=== PATIENT | male | born 1980 | race Caucasian/White ===

== ENCOUNTER 2022-10-12 14:03 | Observation (INO) | payer OTHER ==
[2022-10-12] MEDS ORDERED: NITROGLYCERIN OINT 1 INCH/GM PACKET TOPICAL STA (14:57)
[2022-10-12] MEDS ORDERED: ASPIRIN 81 MG PO STA (14:57)
--- NOTE | 2022-10-12 15:16 | ED ---
General Adult HPI - General Chief complaint: Chest Pain Stated complaint: Chest Pain Time Seen by Provider: 10/12/22 14:10 Source: patient, family, RN notes reviewed, old records reviewed Mode of arrival: EMS Limitations: no limitations - History of Present Illness Initial comments: This a 42-year-old male who presents to the emergency department complaining of left-sided chest pain that radiates down his left arm. Patient states it also makes him mildly short of breath and lightheaded. Patient states it started hour prior to arrival. Patient states he has a history of smoking and a family history is strong for cardiac disease. Patient denies any history of diabetes hypertension high cholesterol. Patient denies any recent fever chills or cough per patient denies any near syncopal episode however he does feel very dizzy. Patient denies any abdominal pain patient's nausea vomiting diarrhea. - Related Data Home Medications Medication Instructions Recorded Confirmed ALPRAZolam [Xanax] 0.5 mg PO DAILY PRN 10/12/22 10/12/22 Divalproex ER [Depakote ER] 1,000 mg PO BID 10/12/22 10/12/22 Allergies Allergy/AdvReac Type Severity Reaction Status Date / Time guaifenesin [From Mucinex] Allergy Rash/Hives Verified 10/12/22 14:36 Review of Systems ROS Statement: Those systems with pertinent positive or pertinent negative responses have been documented in the HPI. ROS Other: All systems not noted in ROS Statement are negative. Past Medical History Past Medical History: Seizure Disorder Additional Past Medical History / Comment(s): IBS History of Any Multi-Drug Resistant Organisms: None Reported Past Surgical History: Appendectomy, Cholecystectomy Past Psychological History: Anxiety, Bipolar Smoking Status: Current every day smoker Past Alcohol Use History: Occasional Past Drug Use History: None Reported General Exam - General Exam Comments Initial Comments: GENERAL: Patient is well-developed and well-nourished. Patient is nontoxic and well- hydrated and is in mild distress. ENT: Neck is soft and supple. No significant lymphadenopathy is noted. Oropharynx is clear. Moist mucous membranes. Neck has full range of motion without eliciting any pain. EYES: The sclera were anicteric and conjunctiva were pink and moist. Extraocular movements were intact and pupils were equal round and reactive to light. Eyelids were unremarkable. PULMONARY: Unlabored respirations. Good breath sounds bilaterally. No audible rales rhonchi or wheezing was noted. CARDIOVASCULAR: There is a regular rate and rhythm without any murmurs gallops or rubs. ABDOMEN: Soft and nontender with normal bowel sounds. SKIN: Skin is clear with no lesions or rashes and otherwise unremarkable. NEUROLOGIC: Patient is alert and oriented x3. Cranial nerves II through XII are grossly intact. Motor and sensory are also intact. Normal speech, volume and content. Symmetrical smile. MUSCULOSKELETAL: Normal extremities with adequate strength and full range of motion. LYMPHATICS: No significant lymphadenopathy is noted PSYCHIATRIC: Normal psychiatric evaluation. Limitations: no limitations Course Vital Signs 10/12/22 10/12/22 10/12/22 14:05 14:11 17:00 Temperature 98.4 F Pulse Rate 79 79 65 Respiratory 16 18 18 Rate Blood Pressure 124/83 118/80 O2 Sat by Pulse 96 96 97 Oximetry 10/12/22 10/12/22 17:13 19:33 Temperature Pulse Rate 64 79 Respiratory 16 20 Rate Blood Pressure 111/77 107/77 O2 Sat by Pulse 97 98 Oximetry Medical Decision Making - Medical Decision Making EKG was interpreted by myself shows a sinus rhythm with an occasional PVC at 78 bpm TX interval 195 QRSs 190 QT interval 377 QTC is 410. Patient's EKG sh owselevation or depression. Was pt. sent in by a medical professional or institution ([facility], [employer]EL[employer], urgent care, hospital, or fci...) When possible be specific @ -[No] Did you speak to anyone other than the patient for history (EMS, parent, family, police, friend...)? What history was obtained from this source @ -[No] Did you review nursing and triage notes (agree or disagree)? Why? @ -[I reviewed and agree with nursing and triage notes] Were old charts reviewed (outside hosp., previous admission, EMS record, old EKG, old radiological studies, urgent care reports/EKG's, fci records)? Report findings @ -[No old charts were reviewed] Differential Diagnosis (chest pain, altered mental status, abdominal pain women, abdominal pain men, vaginal bleeding, weakness, fever, dyspnea, syncope, headache, dizziness, GI bleed, back pain, seizure, CVA, palpatations, mental health, musculoskeletal)? @ -Differential chest pain EKG interpreted by me (3pts min.). @ -[As above] X-rays interpreted by me (1pt min.). @ -Shows no acute abnormality CT interpreted by me (1pt min.). @ -[None done] U/S interpreted by me (1pt. min.). @ -[None done] What testing was considered but not performed or refused? (CT, X-rays, U/S, lab s)? Why? @ -[None] What meds were considered but not given or refused? Why? @ -[None] Did you discuss the management of the patient with other professionals (professionals i.e. , PA, JAVA DEVELOPER, lab, RT, psych nurse, hospital social worker, core carrier, teacher, sba business development officer, telephonic nurse case manager)? Give summary @ -I spoke with Dr. Montoya he agreed to admit the patient admitted the patient I wrote admitting orders Was smoking cessation discussed for >3mins.? @ -[No] Was critical care preformed (if so, how long)? @ -[No] Were there social determinants of health that impacted care today? How? (Homelessness, low income, unemployed, alcoholism, drug addiction, transportation, low edu. Level, literacy, decrease access to med. care, long term, rehab)? @ -[No] Was there de-escalation of care discussed even if they declined (Discuss DNR or withdrawal of care, Hospice)? DNR status @ -[No] What co-morbidities impacted this encounter? (DM, HTN, Smoking, COPD, CAD, Cancer, CVA, ARF, Chemo, Hep., AIDS, mental health diagnosis, sleep apnea, morbid obesity)? @ -[None] Was patient admitted / discharged? Hospital course, mention meds given and route, prescriptions, significant lab abnormalities, going to OR and other pertinent info. @ -Patient had lab work done all of which was normal patient continued to have some chest pain and left arm and I spoke with Dr. Montoya agreed to admit the patient admitted the patient wrote admitting orders I consult cardiology Undiagnosed new problem with uncertain prognosis? @ -[No] Drug Therapy requiring intensive monitoring for toxicity (Heparin, Nitro, Insulin, Cardizem)? @ -[No] Were any procedures done? @ -[No] Diagnosis/symptom? @ -Chest pain Acute, or Chronic, or Acute on Chronic? @ -Acute Uncomplicated (without systemic symptoms) or Complicated (systemic symptoms)? @ -Complicated Side effects of treatment? @ -[No] Exacerbation, Progression, or Severe Exacerbation? @ -[No] Poses a threat to life or bodily function? How? (Chest pain, USA, MO, pneumonia, PE, COPD, DKA, ARF, appy, cholecystitis, CVA, Diverticulitis, Homicidal, Suicidal, threat to staff... and all critical care pts) @ -Assess this could lead to an MO which could lead to end organ dysfunction - Lab Data Result diagrams: 10/12/22 15:03 10/12/22 15:03 Lab Results 10/12/22 10/12/22 10/12/22 Range/Units 15: 15: 15:03 WBC 7.0 (3.8-10.6) k/uL RBC 4.90 (4.30-5.90) m/uL Hgb 14.5 (13.0-17.5) gm/dL Hct 43.1 (39.0-53.0) % MCV 88.1 (80.0-100.0) fL MCH 29.6 (25.0-35.0) pg MCHC 33.6 (31.0-37.0) g/dL RDW 12.9 (11.5-15.5) % Plt Count 211 (150-450) k/uL MPV 8.5 Neutrophils % 39 % Lymphocytes % 50 % Monocytes % 6 % Eosinophils % 3 % Basophils % 1 % Neutrophils # 2.7 (1.3-7.7) k/uL Lymphocytes # 3.5 (1.0-4.8) k/uL Monocytes # 0.5 (0-1.0) k/uL Eosinophils # 0.2 (0-0.7) k/uL Basophils # 0.0 (0-0.2) k/uL PT 10.1 (9.0-12.0) sec INR 0.9 (<1.2) APTT 23.8 (22.0-30.0) sec Sodium 140 (137-145) mmol/L Potassium 4.2 (3.5-5.1) mmol/L Chloride 107 (98-107) mmol/L Carbon Dioxide 23 (22-30) mmol/L Anion Gap 10 mmol/L BUN 15 (9-20) mg/dL Creatinine 0.86 (0.66-1.25) mg/dL Est GFR (CKD-EPI)AfAm >90 (>60 ml/min/1.73 sqM) Est GFR (CKD-EPI)NonAf >90 (>60 ml/min/1.73 sqM) Glucose 117 H (74-99) mg/dL Calcium 9.0 (8.4-10.2) mg/dL Magnesium 1.9 (1.6-2.3) mg/dL Total Bilirubin 0.2 (0.2-1.3) mg/dL AST 23 (17-59) U/L ALT 29 (4-49) U/L Alkaline Phosphatase 64 (38-126) U/L Troponin I (0.000-0.034) ng/mL Total Protein 6.6 (6.3-8.2) g/dL Albumin 3.9 (3.5-5.0) g/dL 10/12/22 Range/Units 15:03 WBC (3.8-10.6) k/uL RBC (4.30-5.90) m/uL Hgb (13.0-17.5) gm/dL Hct (39.0-53.0) % MCV (80.0-100.0) fL MCH (25.0-35.0) pg MCHC (31.0-37.0) g/dL RDW (11.5-15.5) % Plt Count (150-450) k/uL MPV Neutrophils % % Lymphocytes % % Monocytes % % Eosinophils % % Basophils % % Neutrophils # (1.3-7.7) k/uL Lymphocytes # (1.0-4.8) k/uL Monocytes # (0-1.0) k/uL Eosinophils # (0-0.7) k/uL Basophils # (0-0.2) k/uL PT (9.0-12.0) sec INR (<1.2) APTT (22.0-30.0) sec Sodium (137-145) mmol/L Potassium (3.5-5.1) mmol/L Chloride (98-107) mmol/L Carbon Dioxide (22-30) mmol/L Anion Gap mmol/L BUN (9-20) mg/dL Creatinine (0.66-1.25) mg/dL Est GFR (CKD-EPI)AfAm (>60 ml/min/1.73 sqM) Est GFR (CKD-EPI)NonAf (>60 ml/min/1.73 sqM) Glucose (74-99) mg/dL Calcium (8.4-10.2) mg/dL Magnesium (1.6-2.3) mg/dL Total Bilirubin (0.2-1.3) mg/dL AST (17-59) U/L ALT (4-49) U/L Alkaline Phosphatase (38-126) U/L Troponin I <0.012 (0.000-0.034) ng/mL Total Protein (6.3-8.2) g/dL Albumin (3.5-5.0) g/dL Disposition Clinical Impression: Chest pain Disposition: ADMITTED IP TO THIS [facility] Referrals: Tanja Juan DO [Primary Care Provider] - 1-2 days Time of Disposition: 19:57
[2022-10-12 15:17] LABS: Basophils % (A) 1 %; Eosinophils # (A) 0.2 k/uL (0-0.7); Eosinophils % (A) 3 %; HCT 43.1 % (39.0-53.0); HGB 14.5 gm/dL (13.0-17.5); Lymphocytes # (A) 3.5 k/uL (1.0-4.8); Lymphocytes % (A) 50 %; MCH 29.6 pg (25.0-35.0); MCHC 33.6 g/dL (31.0-37.0); MCV 88.1 fL (80.0-100.0); Mean Platelet Volume 8.5; Monocytes # (A) 0.5 k/uL (0-1.0); Monocytes % (A) 6 %; Neutrophils # (A) 2.7 k/uL (1.3-7.7); Neutrophils % (A) 39 %; Platelet Count 211 k/uL (150-450); RDW 12.9 % (11.5-15.5)
[2022-10-12 15:28] LABS: INR 0.9 (<1.2); Partial Thromboplastin Time 23.8 sec (22.0-30.0); Prothrombin Time 10.1 sec (9.0-12.0)
[2022-10-12 15:46] LABS: ALT 29 U/L (4-49); AST 23 U/L (17-59); African American GFR (CKD) >90 (>60 ml/min/1.73 sqM); Albumin 3.9 g/dL (3.5-5.0); Alkaline Phosphatase 64 U/L (38-126); Anion Gap 10 mmol/L; Blood Urea Nitrogen 15 mg/dL (9-20); Carbon Dioxide 23 mmol/L (22-30); Chloride 107 mmol/L (98-107); Glucose 117 mg/dL (74-99); Magnesium 1.9 mg/dL (1.6-2.3); Non-African American GFR(CKD) >90 (>60 ml/min/1.73 sqM); Potassium 4.2 mmol/L (3.5-5.1); Sodium 140 mmol/L (137-145); Total Bilirubin 0.2 mg/dL (0.2-1.3); Total Protein 6.6 g/dL (6.3-8.2)
--- NOTE | 2022-10-12 16:39 | XR ---
EXAMINATION TYPE: XR chest 2V DATE OF EXAM: 10/12/2022 4:34 PM COMPARISON: Chest radiographs from 10/12/2022 TECHNIQUE: XR chest 2V Frontal and lateral views of the chest. CLINICAL INDICATION:Male, 42 years old with history of Chest Pain; FINDINGS: Lungs/Pleura: There is no evidence of pleural effusion, focal consolidation, or pneumothorax. Pulmonary vascularity: Unremarkable. Heart/mediastinum: Cardiomediastinal silhouette is unremarkable. Musculoskeletal: No acute osseous pathology. IMPRESSION: No acute cardiopulmonary disease/process.
[2022-10-12] MEDS ORDERED: NITROGLYCERIN SL TABS 0.4 MG TAB SUBLINGUAL PRN (19:57)
[2022-10-12] MEDS ORDERED: ACETAMINOPHEN TAB 325 MG TAB PO PRN (20:48)
[2022-10-12] MEDS ORDERED: TEMAZEPAM 15 MG CAP PO PRN (20:48)
[2022-10-12] MEDS ORDERED: ONDANSETRON 4 MG/2 ML VIAL IVP PRN (20:48)
[2022-10-12] MEDS ORDERED: NALOXONE 0.4 MG/ML 1 ML VIAL IV PRN (20:48)
[2022-10-12] MEDS ORDERED: LORazepam 0.5 MG TAB PO PRN (20:48)
--- NOTE | 2022-10-12 20:50 | P.HPIM ---
History of Present Illness H&P Date: 10/12/22 Chief Complaint: Chest pressure This is a pleasant 42-year-old patient, follows Dr. Tanja trujillo. Chronic stable medical conditions include, epilepsy for which patient is on Depakote, bipolar disorder, irritable bowel syndrome. Patient works at [employer]. Was putting small packets on the shelf when he developed pain in the middle of the chest. Pain was then felt in the left arm is a numbness. And the shoulder. Initially felt a little bit dizzy. And mildly short of breath. No perspiration. Had a baseline patient does feel tired. Decided to come to the hospital. No prior cardiac history. Patient does smoke less than a pack a day. Review of systems: GEN.: Tired EYES: None HEENT: None NECK: None RESPIRATORY: None CARDIOVASCULAR: None GASTROINTESTINAL: None GENITOURINARY: None MUSCULOSKELETAL: None LYMPHATICS: None HEMATOLOGICAL: None PSYCHIATRY: Anxious NEUROLOGICAL: None Past medical history to include: Epilepsy, IBS, bipolar disorder Social history: Works at [employer]. Lives alone. Smokes less than a pack a day. Denies use of recreational drugs. Physical examination: VITAL SIGNS: 98.4, 79, 20, 107/77, 98% room air GENERAL: BMI 40.1, declining very slightly anxious. EYES: Pupils equal. Conjunctiva normal. HEENT: External appearance of nose and ears normal, oral cavity grossly normal. NECK: JVD not raised; masses not palpable. HEART: First and second heart sounds are normal; no edema. LUNGS: Respiratory rate normal; clear to auscultation. ABDOMEN: Soft, nontender, liver spleen not palpable, no masses palpable. PSYCH: Alert and oriented x3; mood and affect normal. MUSCULOSKELETAL:No Clubbing/cyanosis;muscles-grossly intact. Some reproducible tenderness of the left lower costochondral junction NEUROLOGICAL: Cranial nerves grossly intact; no facial asymmetry, power and sensation grossly intact. LYMPHATICS: No lymph nodes palpable in the axilla and neck INVESTIGATIONS, reviewed in the clinical context: White count 7 hemoglobin 14.5 platelets 211 sodium 140 potassium 4.2 creatinine 0.86 Troponin I is less than 0.012 EKG tracing personally reviewed by me-normal sinus rhythm Chest x-ray film personally reviewed by me-unremarkable Assessment and plan: -Anterior chest wall pain. Some cardiac features. Risk factors include obesity, smoking. Serial cardiac enzymes. Telemetry. Consult cardiology. -Chronic nicotine dependence, cigarette smoker Nicotine patch -Bipolar disorder Xanax when necessary -Epilepsy disorder Depakote ER -Morbid obesity BMI 40.1 Weight loss measures Care was discussed with the patient. Cardiology consulted. Nitro paste. Past Medical History Past Medical History: Seizure Disorder Additional Past Medical History / Comment(s): IBS History of Any Multi-Drug Resistant Organisms: None Reported Past Surgical History: Appendectomy, Cholecystectomy Past Psychological History: Anxiety, Bipolar Smoking Status: Current every day smoker Past Alcohol Use History: Occasional Past Drug Use History: None Reported Medications and Allergies Home Medications Medication Instructions Recorded Confirmed Type ALPRAZolam [Xanax] 0.5 mg PO DAILY PRN 10/12/22 10/12/22 History Divalproex ER [Depakote ER] 1,000 mg PO BID 10/12/22 10/12/22 History Allergies Allergy/AdvReac Type Severity Reaction Status Date / Time guaifenesin [From Mucinex] Allergy Rash/Hives Verified 10/12/22 14:36 Physical Exam Vitals: Vital Signs Temp Pulse Resp BP Pulse Ox 10/12/22 19:33 79 20 107/77 98 10/12/22 17:13 64 16 111/77 97 10/12/22 17:00 65 18 118/80 97 10/12/22 14:11 79 18 96 10/12/22 14:05 98.4 F 79 16 124/83 96 Intake and Output 10/12/22 10/12/22 10/12/22 06:59 14:59 22:59 Other: Weight 141.521 kg Results CBC & Chem 7: 10/12/22 15:03 10/12/22 15:03 Labs: Abnormal Lab Results - Last 24 Hours (Table) 10/12/22 Range/Units 15:03 Glucose 117 H (74-99) mg/dL
[2022-10-12] MEDS: ENOXAPARIN 40 MG/0.4 ML SYRINGE SQ SCH (21:17)
[2022-10-12] MEDS: NICOTINE 21MG/24HR PATCH TRANSDERM SCH (21:18)
[2022-10-13] MEDS: NITROGLYCERIN OINT 1 INCH/GM PACKET TOPICAL SCH ×3 (00:19→11:37)
[2022-10-13 08:14] VITALS: RESP 17
[2022-10-13] MEDS ORDERED: DOBUTamine DRIP for NUC MED 500 MG in DEXTROSE/WATER 1 250ML.BAG IV PRN (08:29)
[2022-10-13] MEDS: ENOXAPARIN 40 MG/0.4 ML SYRINGE SQ SCH (08:34)
[2022-10-13] MEDS: NICOTINE 21MG/24HR PATCH TRANSDERM SCH (08:34)
[2022-10-13] MEDS ORDERED: ASPIRIN 325 MG TAB PO SCH (09:00)
[2022-10-13 10:21] LABS: Chol/HDL Ratio 7.02 Ratio; LDL Cholesterol,Calculated 110.4 mg/dL (0.0-131.0)
--- NOTE | 2022-10-13 10:40 | P.CRDCN ---
History of Present Illness Consult date: 10/13/22 Consult reason: chest pain History of present illness: History of present illness: This is a 42 year old male with no previous cardiac history and no previous cardiac workup . He has a past medical history of bronchitis, IBS, epilepsy, active tobacco use and dependence of less than one pack per day. 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 He also had some difficulty in breathing. He states he is normally moderately active. He does have chronic back pain would not be able to ambulate on a treadmill. He states he has never had this chest pain before. It lasted about a half hour and went away on its own. He has not experienced it with ambulation. Regarding alcohol, patient states he has a drink 1-2 times per week. Patient is seen today in the ER waiting for bed on the observation unit. EKG sinus rhythm Chest x-ray: No acute process CBC CMP unremarkable except except for glucose of 117. Troponin negative 3. Triglycerides 387, cholesterol 219, LDL 110, HDL 31. Home cardiac medications: None Review Of Systems: At the time of my evaluation: Constitutional: No fever, no chills. No weakness, fatigue or lethargy. EENT: No headache. No dizziness. Lungs: No shortness of breath, cough, no sputum production. No wheezing. Cardiovascular: No chest pain, no lower extremity edema. No palpitations. No paroxysmal nocturnal dyspnea. No orthopnea. No lightheadedness or dizziness. No syncopal episodes. Abdominal: No abdominal pain. No nausea, vomiting. No diarrhea. No constipation. No bloody or tarry stools. Genitourinary: No dysuria.. No urinary retention. Musculoskeletal: No myalgias. No muscle weakness, no frequent falls. No back pain. No neck pain. Integumentary: No wounds. No rash. No unusual bruising. Neurologic: No aphasia. No facial droop. No change in mentation. No head injury. No headache. Physical examination: Gen: This is a morbidly obese 42-year-old male. He is resting on the ER stretcher and appears to be comfortable and in no acute distress.[ ] VS: reviewed HEENT: Head is atraumatic, normocephalic. Pupils equal, round. Sclerae is anicteric. NECK: Supple. No JVD. . LUNGS: Clear to auscultation. No wheezes or rhonchi. No intercostal retractions. HEART: Regular rate and rhythm. No murmur. ABDOMEN: Soft No tenderness. EXTREMITIES: No pedal edema. No calf tenderness. NEUROLOGICAL: Patient is awake, alert and oriented x3. Assessment: Atypical chest pain, acute coronary syndrome ruled out Tobacco use and dependence Bronchitis IBS Epilepsy Plan: Obtain dobutamine stress test Obtain 2-D echocardiogram and Doppler study to assess cardiac structure and function If cardiac testing is unremarkable, patient is cleared for discharge home Thank you kindly for this consultation. Nurse practitioner note has been reviewed, I agree with documented findings and plan of care. Patient was seen and examined. Past Medical History Past Medical History: Seizure Disorder Additional Past Medical History / Comment(s): IBS History of Any Multi-Drug Resistant Organisms: None Reported Past Surgical History: Appendectomy, Cholecystectomy Past Psychological History: Anxiety, Bipolar Smoking Status: Current every day smoker Past Alcohol Use History: Occasional Past Drug Use History: None Reported Medications and Allergies Home Medications Medication Instructions Recorded Confirmed Type ALPRAZolam [Xanax] 0.5 mg PO DAILY PRN 10/12/22 10/12/22 History Divalproex ER [Depakote ER] 1,000 mg PO BID 10/12/22 10/12/22 History Allergies Allergy/AdvReac Type Severity Reaction Status Date / Time guaifenesin [From Mucinex] Allergy Rash/Hives Verified 10/12/22 14:36 Physical Exam Vitals: Vital Signs Temp Pulse Resp BP Pulse Ox 10/13/22 08:14 83 17 108/74 96 10/13/22 06:02 71 18 88/51 97 10/13/22 00:25 80 18 106/65 10/12/22 22:36 101 H 20 120/80 98 10/12/22 19:33 79 20 107/77 98 10/12/22 17:13 64 16 111/77 97 10/12/22 17:00 65 18 118/80 97 10/12/22 14:11 79 18 96 10/12/22 14:05 98.4 F 79 16 124/83 96 Results 10/12/22 15:03 10/12/22 15:03 Cardiac Enzymes 10/12/22 10/12/22 10/12/22 Range/Units 15:03 15:03 20:12 AST 23 (17-59) U/L Troponin I <0.012 <0.012 (0.000-0.034) ng/mL 10/12/22 Range/Units 23:02 AST (17-59) U/L Troponin I <0.012 (0.000-0.034) ng/mL Coagulation 10/12/22 Range/Units 15:03 PT 10.1 (9.0-12.0) sec APTT 23.8 (22.0-30.0) sec CBC 10/12/22 Range/Units 15:03 WBC 7.0 (3.8-10.6) k/uL RBC 4.90 (4.30-5.90) m/uL Hgb 14.5 (13.0-17.5) gm/dL Hct 43.1 (39.0-53.0) % Plt Count 211 (150-450) k/uL Comprehensive Metabolic Panel 10/12/22 Range/Units 15:03 Sodium 140 (137-145) mmol/L Potassium 4.2 (3.5-5.1) mmol/L Chloride 107 (98-107) mmol/L Carbon Dioxide 23 (22-30) mmol/L BUN 15 (9-20) mg/dL Creatinine 0.86 (0.66-1.25) mg/dL Glucose 117 H (74-99) mg/dL Calcium 9.0 (8.4-10.2) mg/dL AST 23 (17-59) U/L ALT 29 (4-49) U/L Alkaline Phosphatase 64 (38-126) U/L Total Protein 6.6 (6.3-8.2) g/dL Albumin 3.9 (3.5-5.0) g/dL Current Medications Generic Name Dose Route Start Last Admin Trade Name Freq PRN Reason Stop Dose Admin Acetaminophen 650 mg 10/12/22 20:48 Acetaminophen Tab 325 Mg Tab PO Q6HR PRN Mild Pain or Fever > 100.5 Aspirin 325 mg 10/13/22 09:00 Aspirin 325 Mg Tab PO DAILY [facility] Enoxaparin Sodium 40 mg 10/12/22 21:00 10/12/22 21:17 Enoxaparin 40 Mg/0.4 Ml Syringe SQ 40 mg DAILY DANISH Administration Lorazepam 0.5 mg 10/12/22 20:48 Lorazepam 0.5 Mg Tab PO Q6HR PRN Anxiety Naloxone HCl 0.2 mg 10/12/22 20:48 Naloxone 0.4 Mg/Ml 1 Ml Vial IV Q2M PRN Opioid Reversal Nicotine 1 patch 10/12/22 21:00 10/12/22 21:18 Nicotine 21mg/24hr Patch TRANSDERM 1 patch DAILY DANISH Administration Nitroglycerin 0.4 mg 10/12/22 19:57 Nitroglycerin Sl Tabs 0.4 Mg Tab SUBLINGUAL Q5M PRN Chest Pain Nitroglycerin 1 inch 10/13/22 00:00 10/13/22 06:05 Nitroglycerin Oint 1 Inch/Gm Packet TOPICAL Not Given Q6HR DANISH Ondansetron HCl 4 mg 10/12/22 20:48 Ondansetron 4 Mg/2 Ml Vial IVP Q8HR PRN Nausea And Vomiting Temazepam 15 mg 10/12/22 20:48 Temazepam 15 Mg Cap PO HS PRN Insomnia 10/12/22 15:03 10/12/22 15:03
[2022-10-13] MEDS ORDERED: DOBUTamine DRIP for NUC MED 500 MG/250 ML BAG IV ONE (10:47)
--- NOTE | 2022-10-13 12:11 | CA ---
Dobutamine Stress Echocardiogram Report Rafat Baptiste Age: 42 Gender: M : 1980 Exam Date: 10/13/2022 10:30 Exam Location: [place] [facility] Ordering Physician: Zee Garces Referring Physician: Dez ROGEL Cafeteria Helper: [employer] Technologist: Ht (in): 74 Wt (lb): 312 Procedure CPT: Indication: CP ICD-9 Codes: Rhythm: Patient History: Cardiac Medications: Medications in past 24 hours: Contrast: Total Dose (mL): Stress Results Protocol: Dobutamine Peak Dose (???g/kg/min): 40 Duration (min:sec): Atropine:(mg) None Target HR: 151 Double Product: [id number] Resting HR: 71 Resting BP: 111 / 77 Peak HR: 150 Peak BP: 141 / 77 Max Predicted HR: 178 84 % Max Predicted HR Stress Summary: BP Response: Reason for Termination: INFUSION COMPLETE,Target HR Cardiac Symptoms: NO SYMPTOMS ECG Analysis Resting EKG: Normal sinus rhythm, normal ECG Stress EKG: No abnormal ST/T wave changes with exercise Arrhythmia: Occasional PVCs Echo Analysis Base Echo Analysis: Normal resting echocardiogram. Low Echo Anaylsis: No segmental wall motion abnormality Peak Echo Analysis: Normal wall thickening and motion .no wall motion changes with stress. Recovery Echo: Normal wall motion MEASUREMENTS (Male/Female) Normal Values CONCLUSIONS Normal electrocardiographic response to dobutamine infusion Normal Dobutamine stress echocardiogram. Dr. Ingrid King MD (Electronically Signed) Final Date: 13 October 2022 12:11
[2022-10-13] MEDS ORDERED: DIVALPROEX ER 500 MG TAB.ER.24H PO SCH (12:45)
--- NOTE | 2022-10-13 15:06 | P.DS ---
Providers Date of admission: 10/12/22 19:57 Expected date of discharge: 10/13/22 Attending physician: Guanaco Montoya Consults: 10/12/22 19:57 Consult Physician Urgent Consulting Provider: [facility] Consult Reason/Comments: Chest pain Do you want consulting provider notified?: Yes Primary care physician: Tanja Trujillo [facility] Course: Chief Complaint: Chest pressure This is a pleasant 42-year-old patient, follows Dr. Tanja trujillo. Chronic stable medical conditions include, epilepsy for which patient is on Depakote, bipolar disorder, irritable bowel syndrome. Patient works at [employer]. Was putting small packets on the shelf when he developed pain in the middle of the chest. Pain was then felt in the left arm is a numbness. And the shoulder. Initially felt a little bit dizzy. And mildly short of breath. No perspiration. Had a baseline patient does feel tired. Decided to come to the hospital. No prior cardiac history. Patient does smoke less than a pack a day. October 13: Chest pain-free. Dobutamine stress echocardiogram negative. Pain likely left costochondritis. Past medical history to include: Epilepsy, IBS, bipolar disorder Social history: Works at [employer]. Lives alone. Smokes less than a pack a day. Denies use of recreational drugs. Physical examination: VITAL SIGNS: 98.2, 87, 17, 119/84, 95% room air GENERAL: BMI 40.1, comfortable EYES: Pupils equal. Conjunctiva normal. HEENT: External appearance of nose and ears normal, oral cavity grossly normal. NECK: JVD not raised; masses not palpable. HEART: First and second heart sounds are normal; no edema. LUNGS: Respiratory rate normal; clear to auscultation. ABDOMEN: Soft, nontender, liver spleen not palpable, no masses palpable. PSYCH: Alert and oriented x3; mood and affect normal. MUSCULOSKELETAL:No Clubbing/cyanosis;muscles-grossly intact. Some reproducible tenderness of the left lower costochondral junction INVESTIGATIONS, reviewed in the clinical context: LDL 110 White count 7 hemoglobin 14.5 platelets 211 sodium 140 potassium 4.2 creatinine 0.86 Troponin I is less than 0.012 EKG tracing personally reviewed by me-normal sinus rhythm Chest x-ray film personally reviewed by me-unremarkable Assessment and plan: -Anterior chest wall pain. Left costochondritis. Dobutamine stress echocardiogram negative -Chronic nicotine dependence, cigarette smoker Nicotine patch -Bipolar disorder Xanax when necessary -Epilepsy disorder Depakote ER -Morbid obesity BMI 40.1 Weight loss measures Disposition: Home Plan - Discharge Summary New Discharge Prescriptions: New Nicotine 21Mg/24Hr Patch [Habitrol] 1 patch TRANSDERM DAILY #14 patch Acetaminophen Tab [Tylenol] 650 mg PO Q6HR PRN tab PRN Reason: Mild Pain Or Fever > 100.5 Continue Divalproex ER [Depakote ER] 1,000 mg PO BID ALPRAZolam [Xanax] 0.5 mg PO DAILY PRN PRN Reason: Anxiety Discharge Medication List ALPRAZolam [Xanax] 0.5 mg PO DAILY PRN 10/12/22 [History] Divalproex ER [Depakote ER] 1,000 mg PO BID 10/12/22 [History] Acetaminophen Tab [Tylenol] 650 mg PO Q6HR PRN tab 10/13/22 [Rx] Nicotine 21Mg/24Hr Patch [Habitrol] 1 patch TRANSDERM DAILY #14 patch 10/13/22 [Rx] Follow up Appointment(s)/Referral(s): Ingrid King MD [STAFF PHYSICIAN] - 6 Weeks Tanja Trujillo DO [Primary Care Provider] - 1-2 days
[2022-10-13 15:58] VITALS: BP 123/94; PULSE 85; TEMP 98
--- NOTE | 2022-10-14 07:30 | CA ---
Transthoracic Echo Report Name: Rafat Baptiste Age: 42 Gender: M : 1980 Exam Date: 10/13/2022 10:57 Exam Location: [facility] Ht (in): 74 Wt (lb): 312 Ordering Physician: Zee Garces Attending/Referring Phys: [id number], [employer] [place] Laurence Johnson RDCS Procedure CPT: Indications: LVF Cardiac Hx: Technical Quality: Fair Contrast 1: Total Dose (mL): Contrast 2: Total Dose (mL): MEASUREMENTS (Male / Female) Normal Values 2D ECHO LV Diastolic Diameter PLAX 5.1 cm 4.2 - 5.9 / 3.9 - 5.3 cm LV Systolic Diameter PLAX 3.3 cm IVS Diastolic Thickness 1.3 cm 0.6 - 1.0 / 0.6 - 0.9 cm LVPW Diastolic Thickness 1.5 cm 0.6 - 1.0 / 0.6 - 0.9 cm LV Relative Wall Thickness 0.5 RV Internal Dim ED PLAX 3.4 cm LA Volume 52.4 cm??? 18 - 58 / 22 - 52 cm??? M-MODE Aortic Root Diameter MM 4.3 cm LA Systolic Diameter MM 3.8 cm LA Ao Ratio MM 0.9 AV Cusp Separation MM 2.4 cm DOPPLER AV Peak Velocity 111.0 cm/s AV Peak Gradient 4.9 mmHg AV Mean Velocity 72.2 cm/s AV Mean Gradient 2.4 mmHg AV Velocity Time Integral 17.9 cm LVOT Peak Velocity 85.3 cm/s LVOT Peak Gradient 2.9 mmHg LVOT Velocity Time Integral 16.1 cm MV Area PHT 6.0 cm??? Mitral E Point Velocity 61.1 cm/s Mitral A Point Velocity 74.7 cm/s Mitral E to A Ratio 0.8 MV Deceleration Time 127.2 ms MV E' Velocity 9.5 cm/s Mitral E to MV E' Ratio 6.4 FINDINGS Left Ventricle Mildly increased left ventricular wall thickness. Left ventricular cavity size normal. Normal left ventricular systolic function with no obvious regional wall motion abnormalities. Left ventricular ejection fraction is estimated at 55-60 %. Right Ventricle Normal right ventricular size and function. Right ventricular systolic pressure within normal limits. Right Atrium Normal right atrial size. Left Atrium Normal left atrial size. Mitral Valve Structurally normal mitral valve. No mitral stenosis, regurgitation or prolapse. Aortic Valve Trileaflet aortic valve. No aortic valve stenosis or regurgitation. Tricuspid Valve Structurally normal tricuspid valve. Mild tricuspid regurgitation. Pulmonic Valve Structurally normal pulmonic valve. Pericardium No pericardial effusion. Aorta Normal size aortic root and proximal ascending aorta. CONCLUSIONS 1. Normal left ventricular size and systolic function 2. Mild tricuspid regurgitation Previewed by: Dr. Ingrid King MD (Electronically Signed) Final Date: 14 October 2022 07:29
== END 2022-10-13 16:25 | disposition home or self-care (01) ==
LOC: EC 14:03 → 6NMEDSUR 19:57
PROVIDERS: ADMIT Hospitalist; ATTEND Hospitalist
DX: M94.0 Chondrocostal junction syndrome [Tietze] (principal); K58.9 Irritable bowel syndrome, unspecified; F31.9 Bipolar disorder, unspecified; F41.9 Anxiety disorder, unspecified; G89.29 Other chronic pain; M54.9 Dorsalgia, unspecified; G40.909 Epilepsy, unspecified, not intractable, without status epilepticus; J40 Bronchitis, not specified as acute or chronic; F17.210 Nicotine dependence, cigarettes, uncomplicated; E66.01 Morbid (severe) obesity due to excess calories; Z68.41 Body mass index [BMI] 40.0-44.9, adult; Z79.899 Other long term (current) drug therapy
CPT/HCPCS: 96372 ×2; 99285; 36415; 93005; 93306; 93351; 80061; 80053; 83735; 84484; 85025; 85610; 85730; 71046; G0378 ×2; S4990 ×2; J1650 ×2